=== PATIENT | female | born 1990 | race Caucasian/White ===

== ENCOUNTER 2018-07-18 13:27 | Emergency (ER) | payer MEDICAID, OTHER ==
[2018-07-18 14:27] VITALS: BP 104/67; PULSE 70; RESP 16; TEMP 98.4; O2SAT 100
--- NOTE | 2018-07-18 15:00 | ED PDOC ---
HPI: General Adult Time Seen by Provider: 07/18/18 14:47 Chief Complaint (Nursing): ENT Problem Past Medical History Vital Signs: Last Vital Signs Temp 98.4 F 07/18/18 14:24 Pulse 70 07/18/18 14:24 Resp 16 07/18/18 14:24 BP 104/67 07/18/18 14:24 Pulse Ox 100 07/18/18 14:24 - Family History Family History: States: Unknown Family Hx - Home Medications Home Medications: Ambulatory Orders Medication Instructions Recorded No Known Home Med 07/28/15 - Allergies Allergies/Adverse Reactions: Allergies Allergy/AdvReac Type Severity Reaction Status Date / Time No Known Allergies Allergy Verified 07/18/18 14:23 - ECG O2 Sat by Pulse Oximetry: 100 Disposition - Clinical Impression Clinical Impression: Tongue lump - Patient ED Disposition Is Patient to be Admitted: No - Disposition Referrals: Ashok Torres MD [Staff Provider] - [facility] [Outside] [id number] [Outside] Disposition: Routine/Home Disposition Time: 14:57 Condition: STABLE Additional Instructions: FOLLOW UP WITH ENT FOR FURTHER EVALUATION RETURN TO ED IMMEDIATELY IF SYMPTOMS WORSEN RODOLFO SANTILLAN, thank you for letting us take care of you today. Your provider was Roderick Crespo MD and you were treated for THROAT PAIN. The emergency medical care you received today was directed at your acute symptoms. If you were prescribed any medication, please fill it and take as directed. It may take several days for your symptoms to resolve. Return to the Emergency Department if your symptoms worsen, do not improve, or if you have any other problems. Please contact your doctor or call one of the physicians/clinics you have been referred to that are listed on the Patient Visit Information form that is included in your discharge packet. Bring any paperwork you were given at discharge with you along with any medications you are taking to your follow up visit. Our treatment cannot replace ongoing medical care by a primary care provider outside of the emergency department. Thank you for allowing the [facility] team to be part of your care today. If you had an X-Ray or CT scan: A Radiologist will review the ED reading if any change in treatment is needed we will contact you. If you had a blood, urine, or wound culture: It will take several days for the results, if any change in treatment is needed we will contact you. If you had an STI test: It will take 48 hours for the results. Please call after 1 week if you have not heard back. Instructions: How to Care for Your Mouth and Teeth Print Language: AMERICAN
--- NOTE | 2018-07-18 16:55 | ED PDOC ---
HPI: General Adult Time Seen by Provider: 07/18/18 14:47 Chief Complaint (Nursing): ENT Problem Chief Complaint (Provider): ENT Problem History Per: Patient History/Exam Limitations: no limitations Onset/Duration Of Symptoms: Days (over two weeks) Current Symptoms Are (Timing): Still Present Additional Complaint(s): 27 year old female presents to the ED for evaluation of non-painful lumps in the back of her throat for over two weeks. Patient notes that at onset she was seen at [facility] where she was diagnosed with pharyngitis and prescribed amoxicillin 500mg BID for ten days. She notes completion of the course without any resolution of the bumps. Denies pain, fever, and sore throat. Of note, patient reports she used to be a smoker but has not smoked in over a month. PMD: Regina Wilcox Past Medical History Reviewed: Historical Data, Nursing Documentation, Vital Signs Vital Signs: Last Vital Signs Temp 98.4 F 07/18/18 14:24 Pulse 70 07/18/18 14:24 Resp 16 07/18/18 14:24 BP 104/67 07/18/18 14:24 Pulse Ox 100 07/18/18 16:26 - Medical History PMH: No Chronic Diseases - Surgical History Surgical History: No Surg Hx - Family History Family History: States: Unknown Family Hx - Social History Current smoker - smoking cessation education provided: Yes Alcohol: Social Drugs: Denies - Home Medications Home Medications: Ambulatory Orders Medication Instructions Recorded No Known Home Med 07/28/15 - Allergies Allergies/Adverse Reactions: Allergies Allergy/AdvReac Type Severity Reaction Status Date / Time No Known Allergies Allergy Verified 07/18/18 14:23 Review of Systems ROS Statement: Except As Marked, All Systems Reviewed And Found Negative Constitutional: Negative for: Fever ENT: Positive for: Other (non-painful lumps in throat). Negative for: Throat Pain Physical Exam - Reviewed Nursing Documentation Reviewed: Yes Vital Signs Reviewed: Yes - Physical Exam Appears: Positive for: No Acute Distress ENT: Positive for: Other (anterior surface of posterior tongue: multiple scattered papules; no trismus). Negative for: Pharyngeal Erythema (or tonsillar erythema), Tonsillar Exudate, Tonsillar Swelling Lymphatic: Negative for: Adenopathy - ECG O2 Sat by Pulse Oximetry: 100 (RA) Pulse Ox Interpretation: Normal Medical Decision Making Medical Decision Making: Time: 1456 Initial Impression: tongue bumps Initial Plan: --Patient advised to follow up with ENT without fail for further evaluation and possible biopsy. Additionally encouraged to longer smoke. Scribe Attestation: Documented by Lita Key, acting as a scribe for Asa Tam PA-C. Provider Scribe Attestation: All medical record entries made by the Scribe were at my direction and personally dictated by me. I have reviewed the chart and agree that the record accurately reflects my personal performance of the history, physical exam, medical decision making, and the department course for this patient. I have also personally directed, reviewed, and agree with the discharge instructions and disposition. Disposition - Clinical Impression Clinical Impression: Tongue lump - Disposition Referrals: [facility] [Outside] [facility] [Outside] Ashok Torres MD [Staff Provider] - Disposition: Routine/Home Disposition Time: 14:57 Condition: STABLE Additional Instructions: FOLLOW UP WITH ENT FOR FURTHER EVALUATION RETURN TO ED IMMEDIATELY IF SYMPTOMS WORSEN RODOLFO SANTILLAN, thank you for letting us take care of you today. Your provider was Roderick Crespo MD and you were treated for THROAT PAIN. The emergency medical care you received today was directed at your acute symptoms. If you were prescribed any medication, please fill it and take as directed. It may take several days for your symptoms to resolve. Return to the Emergency Department if your symptoms worsen, do not improve, or if you have any other problems. Please contact your doctor or call one of the physicians/clinics you have been referred to that are listed on the Patient Visit Information form that is included in your discharge packet. Bring any paperwork you were given at discharge with you along with any medications you are taking to your follow up visit. Our treatment cannot replace ongoing medical care by a primary care provider outside of the emergency department. Thank you for allowing the [facility] team to be part of your care today. If you had an X-Ray or CT scan: A Radiologist will review the ED reading if any change in treatment is needed we will contact you. If you had a blood, urine, or wound culture: It will take several days for the results, if any change in treatment is needed we will contact you. If you had an STI test: It will take 48 hours for the results. Please call after 1 week if you have not heard back. Instructions: How to Care for Your Mouth and Teeth Forms: [employer] (Swedish) Print Language: GHANAIAN
== END 2018-07-18 15:33 | disposition home or self-care (01) ==
LOC: H.ER 13:27
DX: R22.0 Localized swelling, mass and lump, head (principal)

== ENCOUNTER 2018-08-23 18:28 | Emergency (ER) | payer MEDICAID ==
[2018-08-23 18:36] VITALS: BP 121/72; PULSE 77; RESP 17; TEMP 98.5; O2SAT 100
[2018-08-23] MEDS ORDERED: Fluorescein 1 mg Ophthalmic Strip OS ONE (18:47)
[2018-08-23] MEDS ORDERED: Tetracaine 0.5% Ophth 2 ML BOTTLE OS ONE (18:47)
--- NOTE | 2018-08-23 19:05 | ED PDOC ---
HPI: Eye Injury/Pain Time Seen by Provider: 08/23/18 18:36 Chief Complaint (Nursing): Eye Problem Chief Complaint (Provider): Eye Problem History Per: Patient History/Exam Limitations: no limitations Onset/Duration Of Symptoms: Days (1X) Current Symptoms Are (Timing): Still Present Wears Contact Lens?: No Additional Complaint(s): 28 year old female with no significant past medical history presents to the ED with left eye irritation onset yesterday. Patient states that yesterday she felt something blow into her eye and since then her left eye has been irritated. She states that she has been using over the counter eye drops with no relief which prompted her ED visit today. Patient reports that she wears glasses but not contacts. Patient states that she has increased tearing and redness to the affected eye. Patient denies visual change, fever, and discharge from her eye. No other complaints. PMD: [place] Past Medical History Reviewed: Historical Data Vital Signs: Last Vital Signs Temp 98.5 F 08/23/18 18:32 Pulse 77 08/23/18 18:32 Resp 17 08/23/18 18:32 BP 121/72 08/23/18 18:32 Pulse Ox 100 08/23/18 18:32 CARLOS Report Viewed: Yes - Medical History PMH: No Chronic Diseases - Surgical History Other surgeries: , Mole removal surgery - Family History Family History: States: No Known Family Hx - Social History Current smoker - smoking cessation education provided: Yes Alcohol: Social Drugs: Denies - Home Medications Home Medications: Ambulatory Orders Medication Instructions Recorded Tobramycin 0.3% [Tobrex 0.3% Ophth 1 drop OS Q6 #1 bottle 08/23/18 Soln] - Allergies Allergies/Adverse Reactions: Allergies Allergy/AdvReac Type Severity Reaction Status Date / Time No Known Allergies Allergy Verified 07/18/18 14:23 Review of Systems ROS Statement: Except As Marked, All Systems Reviewed And Found Negative Constitutional: Negative for: Fever Eyes: Positive for: Redness (and increased tearing ), Other ((+) irritation; (-) discharge from her eyes). Negative for: Vision Change Physical Exam - Reviewed Nursing Documentation Reviewed: Yes Vital Signs Reviewed: Yes - Physical Exam Comments: GENERAL APPEARANCE: Patient is awake, alert, oriented x 3, in no acute distress. Resting comfortably. HEENT: (-) facial swelling and erythema, (-) facial blisters VISUAL ACUITIES: Left eye: 20/ 13 ; Right eye: 20/ 13. Bilaterally 20/13. PERIORBITAL: (-) edema, (-)erythema, (-) tenderness PUPILS: Pupils equal and reactive to light. EOMI's: Intact and painless. LID EVERSION: (-) foreign body visualized CONJUNCTIVAE: (+)faint erythema to left eye FLUORESCEIN: (+) 2 mm area uptake to the 1 o'clock position to iris LUNGS: clear to auscultation bilaterally, (-) wheezing, (-) rhonchi, (-) rales. CARDIAC: RRR NECK: Supple, FROM ENT: Mucus membranes moist. Airway patent, (-) stridor. - ECG O2 Sat by Pulse Oximetry: 100 (RA) Pulse Ox Interpretation: Normal Medical Decision Making Medical Decision Making: Clinical Impression: Eye irritation Time 18:35 Plan: -Fluorescein 1 mg OS ONCE ONE -Tetracaine 0.5% Ophth 1 drop OS ONCE ONE -Nursing communication as ordered - visual acuity -Re-evaluation 19:45 In light of physical exam findings Tobramycin eye drops ordered. On re-evaluation, patient reports improvement of symptoms. On exam, patient remains AAOx3, in no acute distress. Vitals stable. Lab/Diagnostic results d/w the patient in great detail. Diagnosis of eye irritation, conjunctival abrasion d/w the patient. Based on history, exam and diagnostic results, plan will be for outpatient follow up with ophtho within 48 hours. Patient instructed to follow-up with pmd / referral provided / the clinic in 1- 2 days without fail. Advised to take medication as prescribed. Return to the emergency room at any time for any new or worsening symptoms. Patient states she fully agrees with and understands discharge instructions. States that she agrees with the plan and disposition. Verbalized and repeated discharge instructions and plan. I have given the patient opportunity to ask any additional questions. Scribe Attestation: Documented by Cristobal Gonzalez, acting as a scribe for Cassi Pitts PA-C. Provider Scribe Attestation: All medical record entries made by the Scribe were at my direction and personally dictated by me. I have reviewed the chart and agree that the record accurately reflects my personal performance of the history, physical exam, medical decision making, and the department course for this patient. I have also personally directed, reviewed, and agree with the discharge instructions and disposition. Disposition - Clinical Impression Clinical Impression: Eye irritation, Conjunctival abrasion - Patient ED Disposition Is Patient to be Admitted: No Counseled Patient/Family Regarding: Studies Performed, Diagnosis, Need For Followup, Rx Given - Disposition Referrals: Hector Rahman MD [Staff Provider] - Disposition: Routine/Home Disposition Time: 20:20 Condition: STABLE Additional Instructions: The emergency medical care you received today was directed at your acute symptoms. If you were prescribed any medication, please fill it and take as directed. It may take several days for your symptoms to resolve. Return to the Emergency Department if your symptoms worsen, do not improve, or if you have any other problems. Please contact your doctor in 2 days for re-evaluation and follow up / or call one of the physicians/clinics you have been referred to that are listed on the Patient Visit Information form that is included in your discharge packet. Bring any paperwork you were given at discharge with you along with any medications you are taking to your follow up visit. Our treatment cannot replace ongoing medical care by a primary care provider (PCP) outside of the emergency department. Prescriptions: Tobramycin 0.3% [Tobrex 0.3% Ophth Soln] 1 drop OS Q6 #1 bottle Instructions: Corneal Abrasion, How to Care for Your Eyes, How to Use Eye Drops Forms: [employer] (Burundian), [facility] School/Work Excuse Print Language: ECUADOREAN - POA Present On Arrival: None
[2018-08-23] MEDS ORDERED: Tobramycin 0.3% OPHT SOLN OS ONE (19:45)
== END 2018-08-23 20:40 | disposition home or self-care (01) ==
LOC: H.ER 18:28
DX: H10.9 Unspecified conjunctivitis (principal)